=== PATIENT | female | born 1985 | race Caucasian/White ===

== ENCOUNTER 2018-07-29 08:58 | Outpatient (CLI) | payer OTHER ==
--- NOTE | 2018-07-29 09:28 | ULT ---
RIGHT BREAST ULTRASOUND: History: Palpable mass at the 3 o'clock position right breast. Technique: Multiplanar grayscale and color doppler images were obtained in a pelvic ultrasound with a n area of palpable abnormality at the 3 o'clock position of the right breast. FINDINGS: Normal appearing breast parenchyma is seen. No suspicious mass or suspicious shadowing is seen. IMPRESSION: BIRADS category 1 - negative. Annual screening mammography is recommended at the age of 40. POS: [facility]
== END 2018-07-29 08:59 | disposition home or self-care (01) ==
LOC: BICULT 08:58
PROVIDERS: ATTEND Family Medicine
DX: N63.12 Unspecified lump in the right breast, upper inner quadrant (principal)

== ENCOUNTER 2020-07-09 08:19 | Outpatient (CLI) | payer OTHER ==
[2020-07-09 08:57] LABS: Estimated GFR-MDRD - POC Greater than 90
--- NOTE | 2020-07-09 09:54 | MRI ---
MRI BRAIN AND SELLA WITH AND WITHOUT CONTRAST: DATE: 07/09/2020 HISTORY: 35-year-old female with E22.1 hyperprolactinemia. COMPARISON: None. FINDINGS: The cerebellar tonsils are peg-shaped and protrude inferior to the foramen magnum a distance of up to 10 mm. There is no pituitary macroadenoma. The diaphragma sellae is concave. No definite pituitary microadenoma is identified. Infundibular stalk is midline. Optic chiasm is norm al. Cavernous sinuses are normal. There is no abnormal intra-axial enhancement, mass, signal abnormality, or restricted diffusion. No extra-axial fluid collection. Ventricles are normal in size and configuration. IMPRESSION: 1. Chiari I malformation. 2. No pituitary adenoma identified. POS: [facility]
[2020-07-09] MEDS ORDERED: Magnevist 469MG/ML 20 ML VIAL ONE (12:24)
== END 2020-07-09 08:20 | disposition home or self-care (01) ==
LOC: BICMRI 08:19
PROVIDERS: ATTEND Student in an Organized Health Care Education/Training Program
DX: E22.1 Hyperprolactinemia (principal); G93.5 Compression of brain
CPT/HCPCS: 70553; 82565; A9579

== ENCOUNTER 2020-11-19 14:07 | Outpatient (CLI) | payer OTHER ==
[~2020-11-19 14:07] MED LIST: Magnevist 469MG/ML 20 ML VIAL ONE
[2020-11-19 14:39] LABS: Estimated GFR-MDRD - POC Greater than 90
== END 2020-11-19 14:08 | disposition home or self-care (01) ==
LOC: BICMRI 14:07
PROVIDERS: ATTEND Psychiatry & Neurology Epilepsy
DX: G93.5 Compression of brain (principal)
CPT/HCPCS: 72156; 82565; A9579